=== PATIENT | male | born 1975 | race Caucasian/White ===

== ENCOUNTER 2022-03-10 11:23 | Emergency (ER) | payer MEDICAID ==
[2022-03-10] MEDS ORDERED: Bacitracin Oint 1 GM U/D Packet TOP ONE (11:39)
[2022-03-10] MEDS ORDERED: Lidocaine 1% 5 ML VIAL INJECT ONE (11:39)
== END 2022-03-10 12:32 | disposition home or self-care (01) ==
LOC: JP.ED 11:23
DX: S61.111A Laceration without foreign body of right thumb with damage to nail, initial encounter (principal); F17.210 Nicotine dependence, cigarettes, uncomplicated; W26.8XXA Contact with other sharp object(s), not elsewhere classified, initial encounter
CPT/HCPCS: 12001; 99282